=== PATIENT | female | born 1985 | race American Indian/Alaskan Native ===

== ENCOUNTER 2016-05-09 11:02 | Day surgery (SDC) | payer BC ==
[~2016-05-09 11:02] MED LIST: Lactated Ringers 1,000 ML IV SCH
--- NOTE | 2016-05-09 12:39 | PCM.PREANE ---
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 Respiratory: Reports: no symptoms Cardiovascular: Reports: no symptoms GI: Reports: no symptoms Other: Reports: none - PHYSICAL ASSESSMENT O2 Sat by Pulse Oximetry: 98 RR: 18 Vital Signs: Last Vital Signs Temp 36.9 C 05/09/16 12:00 Pulse 67 05/09/16 12:00 Resp 18 05/09/16 12:00 BP 133/73 05/09/16 12:00 Pulse Ox 98 05/09/16 12:00 Height: 1.68 m Weight: 122.016 kg ASA Class: 2 Mental Status: alert & oriented x3 Airway Class: Mallampati = 2 Dentition: Reports: normal dentition ROM/Head Extension: full Respiratory Status: lungs clear to auscultation bilaterally Cardiovascular Status: regular rate & rhythm, normal S1, S2, no murmur - LAB Values: Laboratory Last Values Urine HCG, Qual NEGATIVE (NEGATIVE) 05/09/16 12:10 - ALLERGIES Allergies/Adverse Reactions: Allergies Allergy/AdvReac Type Severity Reaction Status Date / Time No Known Allergies Allergy Verified 12/11/15 09:59 - BLOOD Blood Available: No - ANESTHESIA PLAN Preop Beta Tesfaye: No Anesthesia Type Planned: MAC - ACKNOWLEDGEMENTS Pt an appropriate candidate for the planned anesthesia: Yes Alternatives and risks of anesthesia discussed w pt/guardian: Yes Pt/Guardian understands and agree with anesthesia plan: Yes PreAnesthesia Questionnaire HEENT History: Reports: None Cardiovascular History: Reports: None Respiratory History: Reports: None Gastrointestinal History: Reports: GERD Other Gastrointestinal History: +HPylori Genitourinary History: Reports: None 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: Musculoskeletal History: Reports: None Other Musculoskeletal History: hx fx hand and wrist Neurological History: Reports: Migraines Psychiatric History: Reports: None Endocrine/Metabolic History: Reports: Obesity/BMI 30+ Hematologic History: Reports: None Immunologic History: Reports: None Oncologic (Cancer) History: Reports: None Dermatologic History: Reports: None - Past Surgical History Head Surgeries/Procedures: Reports: None GI Surgical History: Reports: EGD Female Surgical History: Reports: section (C section x 3, 2 with spinal, one with GA) - SUBSTANCE USE Smoking Status *Q: Current Every Day Smoker Tobacco Use Within Last Twelve Months: Cigarettes Recreational Drug Use History: No - HOME MEDS Home Medications: Home Meds Esomeprazole Magnesium 40 mg PO DAILY 12/11/15 [History] Ranitidine HCl 150 mg PO BEDTIME 12/11/15 [History] SUMAtriptan Succinate [Imitrex] 50 mg PO ASDIRECTED PRN 12/11/15 [History] traMADol HCl [Tramadol HCl] 1 tab PO ASDIRECTED PRN 05/06/16 [History] - CURRENT (IN HOUSE) MEDS Current Meds: Current Medications Lactated Ringer's (Ringers, Lactated) 1,000 mls @ 125 mls/hr IV ASDIRECTED EDUARDO Last Admin: 05/09/16 12:13 Dose: 125 mls/hr
[2016-05-09] MEDS ORDERED: Propofol 200 MG/20 ML SDV ONE ×2 (13:00→13:38)
[2016-05-09] MEDS ORDERED: Lidocaine 2% 5 ML SDV ONE (13:00)
[2016-05-09] MEDS ORDERED: Midazolam 1 MG/ML 2 ML SDV ONE (13:01)
[2016-05-09] MEDS ORDERED: fentaNYL 100 MCG/2 ML SDV ONE (13:01)
--- NOTE | 2016-05-09 13:59 | PCM.OPNOTE ---
- General Post-Op/Procedure Note Date of Surgery/Procedure: 05/09/16 Operative Procedure(s): egd w bx. colonoscopy w bx Findings: see dict [id number] Pre Op Diagnosis: abd pain Post-Op Diagnosis: gerd and hemorrhoid Anesthesia Technique: Moderate sedation Primary Surgeon: Naresh Gayle Pathology: egd bx colon random bx Complications: None Condition: Good
--- NOTE | 2016-05-09 14:12 | PCM.POSTAN ---
POST ANESTHESIA ASSESSMENT - MENTAL STATUS Mental Status: alert, oriented - RESPIRATORY Respiratory Status: respiratory rate WNL, airway patent, O2 saturation stable - CARDIOVASCULAR CV Status: pulse rate WNL, blood pressure stable - GASTROINTESTINAL GI Status: no symptoms - PAIN Pain Score: 0 - POST OP HYDRATION Hydration Status: adequate & stable
--- NOTE | 2016-05-09 14:18 | PCM48HPAN ---
Post Anesthesia Note - EVALUATION WITHIN 48HRS OF ANESTHETIC Vital Signs in Normal Range: Yes Patient Participated in Evaluation: Yes Respiratory Function Stable: Yes Airway Patent: Yes Cardiovascular Function Stable: Yes Hydration Status Stable: Yes Pain Control Satisfactory: Yes Nausea and Vomiting Control Satisfactory: Yes Mental Status Recovered: Yes
[2016-05-09 14:28] VITALS: BP 107/70
--- NOTE | 2016-05-09 21:34 | OR ---
SURGEON: Naresh Gayle MD DATE OF PROCEDURE: 05/09/2016 PREOPERATIVE DIAGNOSIS: Abdominal pain. POSTOPERATIVE DIAGNOSES: Acid reflux and hemorrhoids. PROCEDURE PERFORMED: EGD with biopsy. PROCEDURE IN DETAIL: EGD: The patient was taken to the endoscopy room, and with the END MATCHER, Diprivan was administered. A well-lubricated EGD scope was gently inserted through the oropharynx, down the esophagus, passing through the gastroesophageal junction, into the stomach. The mucosa was examined upon the passage. Any etiology will be noted. Once in the stomach, we continued to advance to the distal antrum, passed through the pylorus into the second portion of the duodenum. Again, the mucosa was examined for any abnormality and etiology. The scope was then retrieved back to the stomach and then retroflexed to look at the fundus of the stomach. If a biopsy was indicated, we will biopsy the antrum, body, and gastroesophageal junction. The air will be sucked out while the scope is retrieved to reduce the patient's discomfort. The patient tolerated the procedure well. There were no intraoperative complications. Dr. Gayle was present through the whole procedure. Prior to surgery, a time-out had been called, the patient identified, procedure identified and antibiotic administered. Colonoscopy: The patient was taken to the endoscopy room. A time out was called, patient identified, and procedure identified. Diprivan was then administrated. Patient went from awake to sleep, hearing doctor talking or door closing is normal. Perineum inspection and digital examination were then performed. A well-lubricated colonoscope was gently inserted through the rectum, advanced past the rectosigmoid junction, the descending colon, splenic flexure, transverse colon, hepatic flexure, ascending colon, arrived to the cecum. Cecum was identified as dictated in the finding. Then the scope was carefully withdrawn while attention was paid to the mucosal surface for any abnormality. Air will be sucked out during the scope withdrawal. At the rectum, retroflexed to examine any rectal diseases, fistula or hemorrhoids. During mucosal examination, abnormality or polyp was noted; picture taken and biopsy performed. Patient tolerated procedure well. There were no intraoperative complications, and Dr. Gayle was present throughout the whole procedure. FINDINGS: EGD findings. 1. The patient is easily sedated with END MATCHER and Diprivan. The patient is soundly snoring. 2. Oropharynx and proximal esophagus are free of disease and distal GE junction shows very mild salmon color change consistent with very mild minimal acid reflux. Stomach rugae is normal in appearance. There is some bile in the stomach and no food particle. Distal antrum is normal in appearance. Duodenum was grossly normal in appearance. The scope retrieved back to the stomach and retroflexed to look at the fundus of stomach and there is no hiatal hernia. Biopsy done at antrum, body, GE junction at 40, and sucked out air while scope pulling out. Colonoscopy findings: The patient is easily sedated with END MATCHER and Diprivan. The patient is soundly snoring and bowel prep is left to be desired. Most part is pretty good getting close to the right colon with a semi-formed solid stool. We were able to irrigate and get rid of it, so this is a compromised study because of suboptimum bowel prep. Colon was rather straightforward and very redundant in the sigmoid colon requiring some maneuver in order to get to the cecum. Cecum indicated by ileocecal fold, one-to-one indentation, and appendiceal orifice. Light immittance is not observed and mucosa was then examined while scope pulling out and with some irrigation for some stool residual. The patient does not have diverticulosis, polyp, mass, growth, irritation, inflammation, ulceration, bleeding, AV malformation, none of those. The patient has moderate internal hemorrhoid, little bit external hemorrhoid. The patient would benefit from repeat colonoscopy 10 years from today or if clinically indicated otherwise. Random biopsy was done because of abdominal pain. As always, thank you for the kind referral. LIDIA / KESHIA /[id number]
== END 2016-05-09 14:45 | disposition home or self-care (01) ==
LOC: MW.SDS 11:02
PROVIDERS: ATTEND Surgery
PROC: 0DB68ZX Excision of Stomach, Via Natural or Artificial Opening Endoscopic, Diagnostic (ICD-10-PCS; principal; 2016-05-09)
PROC: 0DBE8ZX Excision of Large Intestine, Via Natural or Artificial Opening Endoscopic, Diagnostic (ICD-10-PCS; 2016-05-09)
DX: K29.50 Unspecified chronic gastritis without bleeding (principal); K21.0 Gastro-esophageal reflux disease with esophagitis; K64.4 Residual hemorrhoidal skin tags; K64.8 Other hemorrhoids; G43.909 Migraine, unspecified, not intractable, without status migrainosus; F17.210 Nicotine dependence, cigarettes, uncomplicated; E66.9 Obesity, unspecified; Z79.899 Other long term (current) drug therapy; Z98.890 Other specified postprocedural states; Z68.41 Body mass index [BMI] 40.0-44.9, adult
CPT/HCPCS: 43239; 45380; 81025; J2250; J3010; J7120; 00740; 88305; 88312; J2704

== ENCOUNTER → 2016-05-28 | Outpatient (CLI) | payer BC ==
--- NOTE | 2016-05-28 14:39 | US ---
EXAMINATION: Right upper quadrant ultrasound HISTORY: Pain COMPARISON: None TECHNIQUE: Grayscale and color Doppler images obtained of the right upper quadrant. FINDINGS: The visualized pancreas appears normal. Liver is mildly increased in generalized echotextu re without a focal hepatic mass. The right kidney measures 14.4 centers [id number] without evidenc e of hydronephrosis. The gallbladder wall thickness is normal. No pericholecystic fluid or shadowing gallstones. Common bile duct measures 2 mm. The sonographic Hunt sign is not reported. IMPRESSION: 1. Moderate fatty infiltration of the liver.
== END ==
LOC: MW.US 09:26
PROVIDERS: ATTEND Surgery
DX: R10.11 Right upper quadrant pain (principal); K76.0 Fatty (change of) liver, not elsewhere classified
CPT/HCPCS: 76705; 76705-26

== ENCOUNTER → 2016-07-12 | Outpatient (CLI) | payer BC ==
[2016-07-22 16:08] LABS: HPV 16 Not Detected (NOTDET); HPV 18 Not Detected (NOTDET)
== END ==
LOC: MW.CHOBGYN 14:26
PROVIDERS: ATTEND Obstetrics & Gynecology
DX: Z32.00 Encounter for pregnancy test, result unknown (principal)
CPT/HCPCS: 81025; 87624; G0145

== ENCOUNTER 2016-07-14 18:47 | Emergency (ER) | payer BC ==
[2016-07-14] MEDS ORDERED: Alum Hydrox/Mag Hydrox/Simeth 15 ML, Metoclopramide 5 MG, Lidocaine 2% 5 ML PO ONE ×3 (19:28)
[2016-07-14] MEDS ORDERED: Ketorolac 60 MG/2 ML SDV IM ONE (20:13)
--- NOTE | 2016-07-14 21:16 | EDM.PDOC ---
ED HPI GI/ABDOMINAL - General Chief Complaint: Abdominal Pain Stated Complaint: STOMACH PAIN Time Seen by Provider: 07/14/16 19:31 Source of Information: Reports: Patient, Family History Limitations: Reports: No limitations - History of Present Illness INITIAL COMMENTS - FREE TEXT/NARRATIVE: HISTORY AND PHYSICAL: [31-year-old female presenting with left lower quadrant] History of Present Illness: Patient has been seen by Dr. Gayle had CAT scans and other testing no source was identified for pain patient saw Dr. Andrade and underwent testing without any source of pain identified She is presenting with increased pain today [] Review of Systems: As per history of present illness and below otherwise all systems reviewed and negative. Past medical history: As per history of present illness and as reviewed below otherwise noncontributory. Surgical history: As per history of present illness and as reviewed below otherwise noncontributory. Social history: No reported history of drug or alcohol abuse. Family history: As per history of present illness and as reviewed below otherwise noncontributory. Physical exam:Alert oriented female who definitely has pain with palpation to the left lower quadrant no rebound or guarding HEENT: Atraumatic, normocehpalic, pupils reactive, negative for conjunctival pallor or scleral icterus, mucous membranes moist, throat clear, neck supple, nontender, trachea midline. Lungs: Clear to auscultation, breath sounds equal bilaterally, chest non tender. Heart: S1S2, regular, negative for clicks, rubs, or JVD. Abdomen: Soft, nondistended, tender. Active bowel sounds. Negative for masses or hepatossplenmegaly. Negative for costovertebral tenderness. Pelvis: Stable nontender. Genitourinary: Deferred. Rectal: Deferred Extremities: Atraumatic, negative for cords or calf pain. Neurovascular unremarkable. Neuro: Awake, alert, oriented. Cranial nerves II through XII unremarkable. Cerebellum unremarkable. Motor and sensory unremarkable throughout. Exam nonfocal. Diagnostics: [] Therapeutics: [ GI cocktail/Toradol IM] Impression: [ Left lower quadrant pain proved] Plan: [ Home Take the tramadol that you have at home for pain and try to slow Followup with Dr. Gayle as discussed] Definitive disposition and diagnosis as appropriate pending reevaluation and review of above. Timing/Duration: Reports: Week(s):, Waxing/waning Location: RLQ Quality: Reports: burning, stabbing - Related Data Allergies/ADRs: Allergies Allergy/AdvReac Type Severity Reaction Status Date / Time No Known Allergies Allergy Verified 07/14/16 19:20 Home Meds: Home Meds Esomeprazole Magnesium 40 mg PO DAILY 12/11/15 [History] Ranitidine HCl 150 mg PO BEDTIME 12/11/15 [History] SUMAtriptan Succinate [Imitrex] 50 mg PO ASDIRECTED PRN 12/11/15 [History] traMADol HCl [Tramadol HCl] 1 tab PO ASDIRECTED PRN 05/06/16 [History] Past Medical History HEENT History: Reports: None Cardiovascular History: Reports: None Respiratory History: Reports: None Gastrointestinal History: Reports: GERD Other Gastrointestinal History: +HPylori Genitourinary History: Reports: None 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: Musculoskeletal History: Reports: None Other Musculoskeletal History: hx fx hand and wrist, both Neurological History: Reports: Migraines Psychiatric History: Reports: None Endocrine/Metabolic History: Reports: Obesity/BMI 30+ Hematologic History: Reports: None Immunologic History: Reports: None Oncologic (Cancer) History: Reports: None Dermatologic History: Reports: None - Infectious Disease History Infectious Disease History: Reports: Chicken pox, Mumps - Past Surgical History Head Surgeries/Procedures: Reports: None GI Surgical History: Reports: Colostomy, EGD Female Surgical History: Reports: section Other Female Surgeries/Procedures: x 3 Social & Family History - Family History Family Medical History: Noncontributory - Tobacco Use Smoking Status *Q: Current Every Day Smoker Years of Tobacco use: 15 Packs/Tins Daily: 0.5 Month Tobacco Last Used: smokes 3 cigarettes per day - Caffeine Use Caffeine Use: Reports: Tea Caffeine Use Comment: 3-4cups/day - Recreational Drug Use Recreational Drug Use: No Drug Use in Last 12 Months: No ED ROS GENERAL - Review of Systems Review Of Systems: ROS reveals no pertinent complaints other than HPI. ED EXAM, GI/ABD - Physical Exam Exam: See Below (See dictation) Course - Vital Signs Last Recorded V/S: Last Vital Signs Temp 36.9 C 07/14/16 19:13 Pulse 68 07/14/16 19:13 Resp 19 07/14/16 19:13 BP 151/77 H 07/14/16 19:13 Pulse Ox 98 05/07/17 19:13 - Orders/Labs/Meds Meds: Medications Discontinued Medications Generic Name Dose Route Start Last Admin Trade Name Evan ANAND Reason Stop Dose Admin Al Hydroxide/Mg Hydroxide 15 0 ml 07/14/16 19:28 07/14/16 19:41 ml/ Metoclopramide HCl 5 mg/ PO 07/14/16 19:29 1 each Lidocaine HCl 5 ml ONETIME ONE Administration Ketorolac Tromethamine 60 mg 07/14/16 20:13 07/14/16 20:25 Toradol IM 07/14/16 20:14 60 mg ONETIME ONE Administration Departure - Departure Time of Disposition: 21:15 Disposition: Home, Self-Care 01 Condition: good Clinical Impression: Abdominal pain Qualifiers: Abdominal location: left lower quadrant Qualified Code(s): R10.32 - Left lower quadrant pain Forms: ED Department Discharge Additional Instructions: The following information is given to patients seen in the emergency department who are being discharged to home. This information is to outline your options for follow-up care. We provide all patients seen in our emergency department with a follow-up referral. The need for follow-up, as well as the timing and circumstances, are variable depending upon the specifics of your emergency department visit. If you don't have a primary care physician on staff, we will provide you with a referral. We always advise you to contact your personal physician following an emergency department visit to inform them of the circumstance of the visit and for follow-up with them and/or the need for any referrals to a consulting specialist. The emergency department will also refer you to a specialist when appropriate. This referral assures that you have the opportunity for followup care with a specialist. All of these measure are taken in an effort to provide you with optimal care, which includes your followup. Under all circumstances we always encourage you to contact your private physician who remains a resource for coordinating your care. When calling for followup care, please make the office aware that this follow-up is from your recent emergency room visit. If for any reason you are refused follow-up, please contact the [facility] emergency department at and asked to speak to the emergency department charge nurse. Followup with Dr. Gayle as discussed Use the tramadol that you have at home for further discomfort
[2016-07-14 21:49] VITALS: BP 131/80
== END 2016-07-14 21:45 | disposition home or self-care (01) ==
LOC: MW.ED 18:47
DX: R10.32 Left lower quadrant pain (principal); K21.9 Gastro-esophageal reflux disease without esophagitis; G43.909 Migraine, unspecified, not intractable, without status migrainosus; E66.9 Obesity, unspecified; F17.210 Nicotine dependence, cigarettes, uncomplicated; Z79.899 Other long term (current) drug therapy; Z98.890 Other specified postprocedural states
CPT/HCPCS: 96372; 99283; A9270; J1885

== ENCOUNTER 2017-06-12 19:20 | Emergency (ER) | payer BC ==
--- NOTE | 2017-06-12 20:05 | EDM.PDOC ---
ED HPI GENERAL MEDICAL PROBLEM - General Chief Complaint: Upper Extremity Injury/Pain Stated Complaint: SMASHED RT ARM/HAND Time Seen by Provider: 06/12/17 20:00 Source of Information: Reports: Patient History Limitations: Reports: No Limitations - History of Present Illness INITIAL COMMENTS - FREE TEXT/NARRATIVE: HISTORY AND PHYSICAL: History of present illness: [Patient comes to the emergency room complaining of right hand pain. Around 3: 30 this afternoon she slammed her right hand in a sliding glass door at her home. She is complaining today of pain to the dorsum of her hand, over fourth and fifth metacarpals. Denies weakness numbness and tingling. She complains of a feeling of stiffness in her hand. Pain in her hand with moving her wrist. No wrist pain. No previous injury to this area. Denies any other injuries.] Review of systems: As per history of present illness and below otherwise all systems reviewed and negative. Past medical history: As per history of present illness and as reviewed below otherwise noncontributory. Surgical history: As per history of present illness and as reviewed below otherwise noncontributory. Social history: No reported history of drug or alcohol abuse. Family history: As per history of present illness and as reviewed below otherwise noncontributory. Physical exam: HEENT: Atraumatic, normocephalic. Extremities: Ecchymosis and mild swelling is appreciated over the fourth and fifth metacarpals of her right hand. She is tender with palpation. Full range of motion to wrist. Pain with making a fist. No finger pain. Capillary refill less than 2 seconds. Neuro: Awake, alert, oriented. Motor and sensory unremarkable throughout. Exam nonfocal. Diagnostics: [R hand x-ray] Impression: [Right Hand pain] Plan: [Discussed with patient that hand x-ray is negative for fractures. Recommend Tylenol alternating with ibuprofen as needed. Ice packs. Continue range of motion exercises to prevent stiffness. Strict return precautions reviewed. Patient's in agreement with today's plan.] Definitive disposition and diagnosis as appropriate pending reevaluation and review of above. Right Hand Pain Score (Numeric/FACES): 5 - Related Data Allergies Allergy/AdvReac Type Severity Reaction Status Date / Time No Known Allergies Allergy Verified 06/12/17 19:38 Home Meds: Home Meds Esomeprazole Magnesium 40 mg PO DAILY 12/11/15 [History] Ranitidine HCl 300 mg PO BEDTIME 12/11/15 [History] SUMAtriptan Succinate [Imitrex] 50 mg PO ASDIRECTED PRN 12/11/15 [History] Pantoprazole Sodium [Protonix] 40 mg PO DAILY 06/12/17 [History] Past Medical History HEENT History: Reports: None Cardiovascular History: Reports: None Respiratory History: Reports: None Gastrointestinal History: Reports: GERD Other Gastrointestinal History: +HPylori Genitourinary History: Reports: None 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: Musculoskeletal History: Reports: None Other Musculoskeletal History: hx fx hand and wrist, both Neurological History: Reports: Migraines Psychiatric History: Reports: None Endocrine/Metabolic History: Reports: Obesity/BMI 30+ Hematologic History: Reports: None Immunologic History: Reports: None Oncologic (Cancer) History: Reports: None Dermatologic History: Reports: None - Infectious Disease History Infectious Disease History: Reports: Chicken Pox, Mumps - Past Surgical History Head Surgeries/Procedures: Reports: None GI Surgical History: Reports: Cholecystectomy, Colostomy, EGD Female Surgical History: Reports: Section Social & Family History - Family History Family Medical History: Noncontributory - Tobacco Use Smoking Status *Q: Current Every Day Smoker Years of Tobacco use: 17 Packs/Tins Daily: 0.3 Month/Year Tobacco Last Used: smokes 3 cigarettes per day - Caffeine Use Caffeine Use: Reports: Soda, Tea Caffeine Use Comment: 3-4cups/day - Recreational Drug Use Recreational Drug Use: No Drug Use in Last 12 Months: No Review of Systems - Review of Systems Review Of Systems: ROS reveals no pertinent complaints other than HPI. ED EXAM, GENERAL - Physical Exam Exam: See Below Course - Vital Signs Last Recorded V/S: Last Vital Signs Temp 97.2 F 06/12/17 19:36 Pulse 92 06/12/17 19:36 Resp 12 06/12/17 19:36 BP 147/77 H 06/12/17 19:36 Pulse Ox 99 06/12/17 19:36 - Orders/Labs/Meds Orders: Active Orders 24 hr Category Date Time Status Hand 2V Rt [CR] Stat Exams 06/12/17 20:02 Taken Departure - Departure Time of Disposition: 20:42 Disposition: Home, Self-Care 01 Condition: Good Clinical Impression: Right hand pain - Discharge Information Referrals: PCP,None [Primary Care Provider] - Forms: ED Department Discharge Additional Instructions: The following information is given to patients seen in the emergency department who are being discharged to home. This information is to outline your options for follow-up care. We provide all patients seen in our emergency department with a follow-up referral. The need for follow-up, as well as the timing and circumstances, are variable depending upon the specifics of your emergency department visit. If you don't have a primary care physician on staff, we will provide you with a referral. We always advise you to contact your personal physician following an emergency department visit to inform them of the circumstance of the visit and for follow-up with them and/or the need for any referrals to a consulting specialist. The emergency department will also refer you to a specialist when appropriate. This referral assures that you have the opportunity for follow-up care with a specialist. All of these measure are taken in an effort to provide you with optimal care, which includes your follow-up. Under all circumstances we always encourage you to contact your private physician who remains a resource for coordinating your care. When calling for follow-up care, please make the office aware that this follow-up is from your recent emergency room visit. If for any reason you are refused follow-up, please contact the [facility] emergency department at and asked to speak to the emergency department charge nurse. [facility] [address] [place] [id number] Your hand x-rays are normal. Follow-up with your local primary care provider at the clinic listed above in 48 -72 hours. Tylenol or ibuprofen as needed for discomfort. Ice packs may also help with tenderness. Return to ER as needed as discussed. - My Orders Last 24 Hours: My Active Orders 06/12/17 20:02 Hand 2V Rt [CR] Stat - Assessment/Plan Last 24 Hours: My Active Orders 06/12/17 20:02 Hand 2V Rt [CR] Stat
[2017-06-12 22:00] VITALS: BP 138/73
--- NOTE | 2017-06-13 14:24 | CR ---
EXAM DATE: 06/12/17 PATIENT'S AGE: 32 Patient: KENNEDI MCDONALD Facility: [place], [place] Site . Site : 1985 Study: XRay Extremity Right hand [id number]/[id number] 8:34:22 PM Ordering Physician: Doctor Venegas Final Report: INDICATION: crushing injury TECHNIQUE: Two views of the right hand COMPARISON: None FINDINGS: Bones: No fractures or bone lesions. Joint spaces: Unremarkable. Soft tissues: Unremarkable. IMPRESSION: No acute abnormality Dictated by Esa Pastor MD @ 06/12/2017 8:36:00 PM Dictated by: Esa Pastor MD @ 06/12/2017 20:36:10 (Electronic Signature) Report Signed by Proxy. HANANE
== END 2017-06-12 21:21 | disposition home or self-care (01) ==
LOC: MW.ED 19:20
DX: S60.221A Contusion of right hand, initial encounter (principal); F17.210 Nicotine dependence, cigarettes, uncomplicated; Z79.899 Other long term (current) drug therapy; W23.1XXA Caught, crushed, jammed, or pinched between stationary objects, initial encounter; Y92.009 Unspecified place in unspecified non-institutional (private) residence as the place of occurrence of the external cause
CPT/HCPCS: 73120-26-RT; 73120-RT; 99283